=== PATIENT | female | born 1990 | race Caucasian/White ===

== ENCOUNTER 2019-07-21 22:42 | Emergency (ER) | payer OTHER ==
[~2019-07-21] VITALS: Ht 152.4 cm; Wt 94.3 kg
[2019-07-21 22:50] VITALS: BP_SYST 137
--- NOTE | 2019-07-21 23:34 | NUR ---
Patient to ER bed 8 to gown for evaluation. Side rails up. Report given to MEGGAN EDWARDS.
--- NOTE | 2019-07-21 23:36 | NUR ---
Patient ambulated to bed 8. Patient "slipped and fell at work two days ago because soap was spilled on the ground". Patient has been experiencing back and knee pain for two days. Patient fell and landed on her butt. Patient denies hitting her head, dizziness, or nausea.
--- NOTE | 2019-07-21 23:46 | NUR ---
ER Dr. Solorio at bedside examining patient.
[2019-07-22] MEDS ORDERED: KETOROLAC TROMETHAMINE 30 MG VIAL IM ONE
[2019-07-22 01:12] VITALS: BP_SYST 145
--- NOTE | 2019-07-22 01:12 | NUR ---
Patient given written and verbal discharge instructions and verbalizes understanding. ER MD Solorio discussed with patient the results and treatment provided. Patient in stable condition. ID arm band removed. Rx of Naprosyn and Lidocaine 5% Transdermal Patch given. Patient educated on pain management and to follow up with PMD. Pain Scale 2/10. 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 Opportunity for questions provided and answered. Medication side effect fact sheet provided.
== END 2019-07-22 01:12 | disposition home or self-care (01) ==
LOC: SED 22:42
DX: S39.012A Strain of muscle, fascia and tendon of lower back, initial encounter (principal); W18.09XA Striking against other object with subsequent fall, initial encounter; Y93.89 Activity, other specified; Y92.89 Other specified places as the place of occurrence of the external cause; Y99.8 Other external cause status
CPT/HCPCS: 72110; 81025; 96372; 99283; J1885